=== PATIENT | male | born 1980 | race Caucasian/White ===

== ENCOUNTER 2023-10-12 10:30 | Emergency (ER) | payer OTHER, SELFPAY ==
[2023-10-12 10:37] VITALS: BP 152/104
[2023-10-12 11:28] VITALS: BMI 28.1
--- NOTE | 2023-10-12 12:00 | ED.GENMED ---
History of Present Illness
General
Chief Complaint: Musculo-Skeletal Complaint
Source: patient
Exam Limitations: none
Time Seen by Provider: 10/12/23 11:13
Nursing documentation reviewed up to this point in time: agreed with
Travel History
Have you had any contact with someone who has COVID-19?: No
Do you have any symptoms of coronavirus? Fever > 100 degrees, chills, cough, shortness of breath, sore throat, loss of taste or smell, muscle aches, or headache?: No
History of Present Illness
History of Present Illness:
Patient is a 42-year-old male who complains of pain from his left buttock that radiates down and shoots down his left leg. He has had this for the past 5 days. He reports this started with a sore stiff back however the back pain has resolved but
this has persisted. He denies any actual injury. 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 He denies any loss of bowel bladder .
He has been taking ibuprofen every 4 hours. he has used steroids in the past but has had reactions from prednisone including rashes in the past. He also reports he broke out shingles after being placed on steroids a prior time. He did not take
anything today.
Past History
Past History
ED Past Medical History: None
ED Past Surgical History: None
Social History
Tobacco: Non-smoker
Alcohol: None
Drug: None
Personal: Single
Living: with family
Review of Systems
Review of Systems
Allergies reviewed?: Yes
All Other Systems: ROS reviewed and negative except as documented in HPI and ROS
Constitutional: Reports no symptoms; Denies fever, fatigue or chills
Musculoskeletal: Reports back pain (pt had back pain prior to start of leg pain now back pain resolved now with left leg pain )
Skin: Reports no symptoms
Neurological: Reports numbness (pt feels a little tingling in his left toes ; denies leg weakness)
Hematologic/Lymphatic: Reports no symptoms
Psychiatric: Reports no symptoms
Phy Exam
General Physical Exam
General Presentation: no apparent distress
General age: appears stated age
General Skin: warm and dry
General Habitus: normal
General Mental: alert
General Hydration: appears well hydrated
Neurological Exam
Neurological Exam: alert, oriented x3 and other (Intact sensation to bilateral lower extremities normal patellar reflexes normal dorsiflexion plantarflexion)
[place] Coma Scale
Eye Opening: Spontaneous
Verbal Response: Oriented
Motor Response: Obeys Commands
GCS Total Score: 15
Musculoskeletal Exam
Musculoskeletal Exam: full ROM
Skin Exam
Skin Exam: normal color and warm/dry
Psychiatric Exam
Psychiatric Exam: normal mood/affect
Course
Orders/Labs/Results
Orders:
Orders
10/12/23 11:59
Vital Signs- Treatment ONCE
Frequency: Once
Acetaminophen [Tylenol] 1,000 mg PO NOW STA
Ketorolac [Toradol] 30 mg IM NOW STA
Vital Signs
Initial and Last Documented VS:
Initial Vital Signs
Temp Pulse Resp BP Pulse Ox
97.9 F 75 14 152/104 97
10/12/23 10:37 10/12/23 10:37 10/12/23 10:37 10/12/23 10:37 10/12/23 10:37
Last Documented Vital Signs
Temp Pulse Resp BP Pulse Ox
97.9 F 75 14 152/104 97
10/12/23 10:37 10/12/23 10:37 10/12/23 10:37 10/12/23 10:37 10/12/23 10:37
Rug Renovator consulted with Physician
Rug Renovator consulted with physician?: Yes
Name of Physician Consulted: Courtney
MDM/Problems Addressed
Differential Diagnosis Includes:
Not limited to muscle strain, sciatica
MDM/Problems Addressed:
Patient describing sciatica type pain. He works in a labor-intensive job and felt that he strained his back over 12 days ago back pain is since resolved but patient has had pain from the left buttocks down his left leg not relieved with ibuprofen
every 4 hours. On exam he has no neurological deficits. He has had issues with steroids in the past, had an episode of shingles after given steroids and previously he had an episode of of rash following steroids.
Since patient is unable to discharge on prednisone will continue ibuprofen 600 mg however only advised patient to take only every 8 hours along with Tylenol will try gabapentin patient was given toradol/tylenol for pain .
*Radiology
Radiology exam reviewed: radiology read reviewed
*Pulse Oximetry
Patient hypoxic: no
*Critical Care Note
Total Time (30-74mins, 75-104mins- exclusive of procedures): Not Applicable
ED Attending Note
-
Portions of this chart may have been created with voice recognition software.� Occasional wrong word or��sound alike� substitutions may have occurred due to the inherent limitations of voice recognition software.
Discharge Plan
Departure
Patient Disposition: Home (Routine Discharge)
Date of Disposition: 10/12/23
Time of Disposition: 12:01
Patient with high blood pressure during this ER visit?: Yes
Condition: Fair
Covid-19: Not Applicable
Discharge Problem:
Sciatica
Instructions: Sciatica (DC), BLOOD PRESSURE
Prescriptions:
New
gabapentin 300 mg capsule
300 mg PO TID PRN (Reason: pain) Qty: 20 0RF
No Action
prednisone 20 MG tablet
20 mg PO BID Qty: 14 0RF
triamcinolone acetonide 1 APPLIC cream
1 applic topical BID Qty: 1 0RF
Rx Instructions:
Do not put in eye just around. May use on arms
meloxicam 7.5 MG tablet
7.5 mg PO BID Qty: 15 0RF
prednisone 50 MG tablet
50 mg PO Daily Qty: 5 0RF
diazepam 5 MG tablet
5 mg PO TIDPRN PRN (Reason: Pain, spasm) Qty: 15 0RF
Referrals:
Huber Raymond, DO [Active] -
NONE,* [Family Provider] -
Activity Restrictions/Additional Instructions:
As discussed ibuprofen 600 mg every 8 hours with food. Tylenol 650 mg orally every 4-6 hours. A prescription for gabapentin was sent to your pharmacy. You may try 1 tablet( 300 mg )this evening or prior to bed. This will make you drowsy. see how
you feel from this medication and then you may take as directed every 8 hours as needed.
Follow-up with orthopedics/pain management in the next several days as needed and return if any worsening of symptoms of worsening pain loss of bowel or bladder or weakness in lower extremity or any further concerns
Interventions
Interventions:
*Risk Screen - Suicide Last Done: 10/12/23 10:37
*General Assessment Last Done: 10/12/23 10:37
*Neglect/Abuse Screening Last Done: 10/12/23 10:37
ED-Musculoskeletal Assessment Last Done: 10/12/23 11:29
[2023-10-12] MEDS: TYLENOL 1000 MG PO (12:13)
[2023-10-12 12:23] VITALS: BP 136/95
== END 2023-10-12 12:24 | disposition home or self-care (01) ==
LOC: EMR 10:30
PROVIDERS: EMERGENCY PHYSICIAN Emergency Medicine
DX: M54.32 Sciatica, left side (principal)
CPT/HCPCS: 99282

== ENCOUNTER 2023-10-20 06:56 | Emergency (ER) | payer OTHER, SELFPAY ==
[2023-10-20 06:59] VITALS: BP 142/115
--- NOTE | 2023-10-20 07:35 | ED.GENMED ---
History of Present Illness
General
Chief Complaint: Back Pain
Source: patient, records and previous hospital records
Exam Limitations: none
Time Seen by Provider: 10/20/23 07:09
Nursing documentation reviewed up to this point in time: agreed with
Travel History
Have you had any contact with someone who has COVID-19?: No
Do you have any symptoms of coronavirus? Fever > 100 degrees, chills, cough, shortness of breath, sore throat, loss of taste or smell, muscle aches, or headache?: No
History of Present Illness
History of Present Illness:
42 male presents with left-sided back pain acute on chronic issue does a fair amount of lifting at work and at home diagnosed with sciatica previously started on gabapentin and Tylenol with some ibuprofen not getting much relief not sleeping much at
night pain is sharp from his buttock to his left thigh and foot with numbness, no fevers no bowel or bladder changes, feels better lying flat on his abdomen, has had a rash after prednisone previously, no fever no bowel or bladder changes, never
seen pain management or neurosurgeon,
Past History
Past History
ED Past Medical History: None
ED Past Surgical History: None
Social History
Tobacco: Non-smoker
Alcohol: None
Drug: None
Personal: Single
Living: with family
Employment: Employed
Review of Systems
Review of Systems
All Other Systems: Not applicable
Constitutional: Denies fever
EENT: Reports no symptoms
Respiratory: Reports no symptoms
Cardiac: Reports no symptoms
ABD/GI: Reports no symptoms
Musculoskeletal: Reports back pain
Neurological: Reports numbness; Denies weakness
Endocrine: Reports no symptoms
Hematologic/Lymphatic: Reports no symptoms
Phy Exam
Physical Exam
Physical Exam:
Physical Exam
General: 42 male looks uncomfortable lying prone
Neck: No jaundice
Heart: s1/s2 regular rate and rhythm, no murmur. equal radial pulses.
Lungs: no acute respiratory distress.
Abdomen: Nontender
Neuro: alert and oriented. no focal neurological deficits
Skin: no rash
Psychiatric: well kept. interactive and cooperative
Extremities: no edema. no calf tenderness. negative homans. good distal pulses
Course
Orders/Labs/Results
Orders:
Orders
10/20/23 07:31
Ketorolac [Toradol] 60 mg IM NOW STA
Oxycodone/Acetaminophen [Percocet 5/325] 1 tablet PO NOW STA
10/20/23 07:36
Lumbar Spine, 2 or 3 View [CR Lumbar Spine 2 Or 3 Views] Urgent
Comment:
Reason For Exam: pian
Vital Signs
Initial and Last Documented VS:
Initial Vital Signs
Temp Pulse Resp BP Pulse Ox
97.9 F 106 18 142/115 98
10/20/23 06:59 10/20/23 06:59 10/20/23 06:59 10/20/23 06:59 10/20/23 06:59
Last Documented Vital Signs
Temp Pulse Resp BP Pulse Ox
97.9 F 106 18 142/115 98
10/20/23 06:59 10/20/23 06:59 10/20/23 06:59 10/20/23 06:59 10/20/23 06:59
*Critical Care Note
Total Time (30-74mins, 75-104mins- exclusive of procedures): Not Applicable
Update Note
Update Note:
9:15 AM patient states he is better after meds, still some numbness with pain will try to get him a follow-up appointment with news clerk for possible JENIFFER etc.
ED Attending Note
-
Portions of this chart may have been created with voice recognition software.� Occasional wrong word or��sound alike� substitutions may have occurred due to the inherent limitations of voice recognition software.
Discharge Plan
Departure
Patient Disposition: Home (Routine Discharge)
Date of Disposition: 10/20/23
Time of Disposition: 09:17
Patient with high blood pressure during this ER visit?: No
Condition: Good
Discharge Problem:
Sciatica
Instructions: Radiculopathy (DC), Sciatica (DC)
Prescriptions:
No Action
prednisone 20 MG tablet
20 mg PO BID Qty: 14 0RF
triamcinolone acetonide 1 APPLIC cream
1 applic topical BID Qty: 1 0RF
Rx Instructions:
Do not put in eye just around. May use on arms
meloxicam 7.5 MG tablet
7.5 mg PO BID Qty: 15 0RF
prednisone 50 MG tablet
50 mg PO Daily Qty: 5 0RF
diazepam 5 MG tablet
5 mg PO TIDPRN PRN (Reason: Pain, spasm) Qty: 15 0RF
gabapentin 300 mg capsule
300 mg PO TID PRN (Reason: pain) Qty: 20 0RF
Referrals:
NONE,* [Family Provider] -
Interventions
Interventions:
*Risk Screen - Suicide Last Done: 10/20/23 07:50
*General Assessment Last Done: 10/20/23 07:01
*Neglect/Abuse Screening Last Done: 10/20/23 07:50
*ED COVID-19 Vaccine History Last Done: 10/20/23 07:50
ED-Musculoskeletal Assessment Last Done: 10/20/23 07:50
[2023-10-20] MEDS: TORADOL 60 MG IM (07:41)
[2023-10-20] MEDS: PERCOCET 5/325 1 TABLET PO (07:42)
[2023-10-20 10:10] VITALS: BP 168/81
== END 2023-10-20 10:11 | disposition home or self-care (01) ==
LOC: EMR 06:56
PROVIDERS: EMERGENCY PHYSICIAN Emergency Medicine
DX: M54.32 Sciatica, left side (principal)
CPT/HCPCS: 99284; 96372; 72100